=== PATIENT | male | born 1965 | race Two or more races ===

== ENCOUNTER → 2025-01-06 | Outpatient (CLI) | payer BC, MEDICAID, SELFPAY ==
--- NOTE | 2025-01-06 17:00 | XR_ITS ---
Examination: CT abdomen and pelvis without contrast. Coronal 3-D reconstructions. Sagittal 2-D reconstructions. Date and time of exam:January 06, 2025 1731 hours INDICATIONS: Right upper abdominal pain flank pain one year COMPARISON: March 19, 2008 CTDI: vol (mGy): 5.73 DLP: (mGycm): 299 Technique: Axial images of the abdomen have been obtained, 3 mm slice thickness Intravenous contrast material has not been administered. Low dose protocols were performed. One or more of the following dose reduction techniques were used; automated exposure control, adjustment of the mA and/or KV according to patient size, use of iterative reconstruction technique. Findings: No focal liver or splenic lesions Contracted gallbladder Infrarenal abdominal aortic aneurysm, AP dimension 3.9 cm, mediolateral dimension 4.5 cm, cephalad caudad dimension 7 cm Poorly defined right renal hypodense masses likely cysts 2 mm calculus posterior right kidney image 72 No hydronephrosis or ureteral calculi No bowel obstruction Normal appendix Colonic diverticulosis Urinary bladder wall thickening up to 4 mm Transverse prostate dimension 4.0 cm Moderate osteopenia IMPRESSION: Poorly defined right renal masses likely cyst, recommend renal sonography follow-up 2 mm nonobstructing calculus right kidney Abdominal aortic aneurysm AP 3.9 cm mediolateral 4.5 cm cephalad caudad dimensions 7 cm, consider CTA abdomen pelvis post intravenous contrast follow-up Mild urinary bladder wall thickening, clinical correlation advised
== END | disposition home or self-care (01) ==
PROVIDERS: PCP Family Medicine; Referring Provider Surgery; Visit Provider Surgery
DX: N20.0 Calculus of kidney (principal); N28.89 Other specified disorders of kidney and ureter; I71.40 Abdominal aortic aneurysm, without rupture, unspecified; N32.89 Other specified disorders of bladder
CPT/HCPCS: 74176